=== PATIENT | female | born 1955 ===

== ENCOUNTER 2018-03-07 12:25 | Emergency (ER) | payer SELFPAY ==
--- NOTE | 2018-03-07 12:40 | ER Report ---
History and Physical Time Seen By MD: 12:40 Hx. of Stated Complaint: pt presents with hx of arriving in [place] from [facility] on , where she started having problems with her asthma, arrived in [place] yesterday and breaqthing is more difficult, and has a worsening cough. Stated prednisolone on Thursday HPI/ROS CHIEF COMPLAINT: SOB HISTORY OF PRESENT ILLNESS: Patient is a 8-year-old female who arrived from [facility] to [place] this past . Since arriving she's had increased work of breathing and shortness of breath and triggering of her asthma. He is using Ventolin inhaler and started prednisone she also started taking Augmentin. REVIEW OF SYSTEMS: Constitutional: No fever, no chills. Eyes: No discharge. ENT: No sore throat. Cardiovascular: No chest pain, no palpitations. Respiratory: Cough productive of green sputum, shortness of breath, wheezing Gastrointestinal: No abdominal pain, no vomiting. Genitourinary: No hematuria. Musculoskeletal: No back pain. Skin: No rashes. Neurological: No headache. Allergies: Coded Allergies: Sulfa (Sulfonamide Antibiotics) (Verified Allergy, Unknown, 03/07/18) Home Meds Active Scripts Chlorpheniramine Maleate (CHLORPHENIRAMINE MALEATE) 4 Mg Tablet, 4 MG PO Q6H for congestion, #28 TAB 0 Refills Prov:ISI MAHAJAN MD 03/07/18 Azithromycin 250 Mg Tab (AZITHROMYCIN 250 MG TAB) 250 Mg Tablet, 0 PO QDAY, #6 TAB 2 tablets on day one; the one tablet daily for four more days Prov:ISI MAHAJAN MD 03/07/18 Amlodipine Besylate (AMLODIPINE BESYLATE) 10 Mg Tablet, 1 TAB PO QDAY, #14 TAB 0 Refills Prov:ISI MAHAJAN MD 03/07/18 Reported Medications [zanidip] No Conflict Check, 10 MG 03/07/18 Albuterol Sulfate (VENTOLIN HFA) 18 Gm Inh, 1-2 PUFF INH 3-4XD, INH 03/07/18 [tritace] No Conflict Check, 10 03/07/18 [solone ] No Conflict Check, 25 MG ASDIRECTED 03/07/18 [ostelin] No Conflict Check 03/07/18 Mometasone Furoate (NASONEX) 17 Gm [place], 17 GM ANN, SPRAY 03/07/18 Montelukast Sodium (SINGULAIR) 10 Mg Tablet, 1 TAB PO QDAY, TAB 03/07/18 Melatonin (Melatonin) 5 Mg Tab.ir.er 03/07/18 Levothyroxine Sodium (LEVOTHYROXINE SODIUM) 75 Mcg Tablet, 75 MCG PO QDAY, TAB 03/07/18 [diabex XR] No Conflict Check 03/07/18 Amoxicillin/Pot Clav 875-125 Mg Tab (AUGMENTIN 875-125 TABLET) 1 Each Tablet, 1 TAB PO Q12H, TAB 03/07/18 Ciclesonide (ALVESCO) 6.1 Gm Hfa.aer.ad, 80 MCG IH BID 03/07/18 Past Medical/Surgical History Reactive airways disease, diabetes, hypertension Constitutional Vital Sign - Last 24 Hours 03/07/18 03/07/18 03/07/18 03/07/18 12:31 12:58 12:58 13:01 Temp 99.1 Pulse 95 80 81 Resp 20 18 B/P (MAP) 171/91 143/85 (104) Pulse Ox 93 92 99 O2 Delivery Room Air Room Air 03/07/18 03/07/18 03/07/18 03/07/18 13:03 13:30 14:00 14:00 Pulse 84 96 79 Resp 18 18 B/P (MAP) 138/77 (97) Pulse Ox 96 O2 Delivery Room Air 03/07/18 03/07/18 03/07/18 14:05 14:19 14:26 Pulse 87 86 89 Resp 18 B/P (MAP) 139/85 (103) 139/88 (105) Pulse Ox 95 Physical Exam General Appearance: The patient is alert, has no immediate need for airway protection and no signs of toxicity. Eyes: Pupils equal and round no pallor or injection. ENT, Mouth: Mucous membranes are moist. Respiratory: Patient with audible wheeze on exam some accessory muscle use Cardiovascular: Regular rate and rhythm. Gastrointestinal: Abdomen is soft and non tender, no masses, bowel sounds normal. Neurological: Awake and alert Skin: Warm and dry, no rashes. Musculoskeletal: Neck is supple non tender. Extremities are nontender, nonswollen and have full range of motion. Medical Decision Making EKG/Imaging Imaging FACILITY: [facility] [place] PATIENT NAME: Sheila Marshall : 1955 MR: [id number] V: [id number] EXAM DATE: ORDERING PHYSICIAN: ISI MAHAJAN TECHNOLOGIST: Location: [facility] Patient: Sheila Marshall : 1955 Visit/Account:[id number] Date of Sevice: 03/07/2018 CHEST PA AND LAT INDICATION: Cough COMPARISON: None available FINDINGS: Heart size within normal limits. There is no focal infiltrate or lobar consolidation. There is no pneumothorax or pleural effusion. Degenerative changes are noted in the thoracic spine. IMPRESSION: 1. No acute cardiopulmonary process. Report Dictated By: Marshall Sutton at 03/07/2018 1:56 PM Report E-Signed By: Marshall Sutton at 03/07/2018 1:57 PM WSN:[email or web address] ED Course/Re-evaluation ED Course Patient improving with DuoNeb treatments. Plan will be discharged home with instructions to continue prednisone as directed also start azithromycin to treat for atypical pneumonia. Also will prescribe amlodipine for patient for antihypertensive Decision to Disposition Date: Mar 07, 2018 Decision to Disposition Time: 14:59 Depart Departure Latest Vital Signs Vital Signs Date Time Temp Pulse Resp B/P (MAP) Pulse Ox O2 Delivery O2 Flow Rate FiO2 03/07/18 14:26 89 139/88 (105) 03/07/18 14:19 95 03/07/18 14:05 18 03/07/18 14:00 Room Air 03/07/18 12:31 99.1 Impression: Primary Impression: Asthma exacerbation Condition: Improved Disposition: HOME OR SELF-CARE New Scripts Chlorpheniramine Maleate (CHLORPHENIRAMINE MALEATE) 4 Mg Tablet 4 MG PO Q6H for congestion, #28 TAB 0 Refills Prov: ISI MAHAJAN MD 03/07/18 Azithromycin 250 Mg Tab (AZITHROMYCIN 250 MG TAB) 250 Mg Tablet 0 PO QDAY, #6 TAB 2 tablets on day one; the one tablet daily for four more days Prov: IIS MAHAJAN MD 03/07/18 Amlodipine Besylate (AMLODIPINE BESYLATE) 10 Mg Tablet 1 TAB PO QDAY, #14 TAB 0 Refills Prov: ISI MAHAJAN MD 03/07/18 Patient Instructions: Asthma (ED) Additional Instructions: Take all your medications as directed Use your Ventolin inhaler, 2 puffs every 6 hours for the next 72 hours then 1-2 puffs every 4-6 hours as needed for shortness of breath or cough Problem Qualifiers Primary Impression: Asthma exacerbation Asthma severity: moderate Asthma persistence: persistent Qualified Codes: J45.41 - Moderate persistent asthma with (acute) exacerbation ISI MAHAJAN MD Mar 07, 2018 12:40
[2018-03-07] MEDS ORDERED: ALBUTEROL/IPRATROPIUM 3 ML NEB NEB ONE ×2 (12:55→14:00)
[2018-03-07] MEDS ORDERED: ALB18R INH (13:19)
[2018-03-07] MEDS ORDERED: [UNRECOGNIZED DRUG - OTHER] (13:19)
[2018-03-07] MEDS ORDERED: LEVO75TA73 PO (13:19)
[2018-03-07] MEDS ORDERED: [UNRECOGNIZED DRUG - OTHER] (13:19)
[2018-03-07] MEDS ORDERED: AMOX-559 PO (13:19)
[2018-03-07] MEDS ORDERED: [UNRECOGNIZED DRUG - OTHER] ASDIRECTED (13:19)
[2018-03-07] MEDS ORDERED: [UNRECOGNIZED DRUG - CODE] IH (13:19)
[2018-03-07] MEDS ORDERED: MONT10TA PO (13:19)
[2018-03-07] MEDS ORDERED: MOMR ENA (13:19)
[2018-03-07] MEDS ORDERED: MELA5TAB21 (13:19)
[2018-03-07] MEDS ORDERED: [UNRECOGNIZED DRUG - OTHER] (13:19)
[2018-03-07] MEDS ORDERED: [UNRECOGNIZED DRUG - OTHER] (13:19)
--- NOTE | 2018-03-07 14:00 | RADIOLOGY IMAGING REPORT ---
FACILITY: [facility] PATIENT NAME: Sheila Marshall : 1955 MR: [id number] V: [id number] EXAM DATE: ORDERING PHYSICIAN: ISI MAHAJAN TECHNOLOGIST: Location: [facility] [place] Patient: Sheila Marshall : 1955 Visit/Account:[id number] Date of Sevice: 03/07/2018 CHEST PA AND LAT INDICATION: Cough COMPARISON: None available FINDINGS: Heart size within normal limits. There is no focal infiltrate or lobar consolidation. There is no pneumothorax or pleural effusion. Degenerative changes are noted in the thoracic spine. IMPRESSION: 1. No acute cardiopulmonary process. Report Dictated By: Marshall Sutton at 03/07/2018 1:56 PM Report E-Signed By: Marshall Sutton at 03/07/2018 1:57 PM WSN:[email or web address]
[2018-03-07] MEDS ORDERED: AMLO-99 PO (14:10)
[2018-03-07] MEDS ORDERED: AZIT-18 PO (14:10)
[2018-03-07] MEDS ORDERED: CHLO-172 PO (14:13)
[2018-03-07 14:26] VITALS: BP 139/88
--- NOTE | 2018-03-07 14:53 | EKG ---
FACILITY: [facility] [place] PATIENT NAME: WANDER BACA : [id number] MR: [id number] V: [id number] EXAM DATE: ORDERING PHYSICIAN: ISI MAHAJAN TECHNOLOGIST: TEOFILO Villanueva Reason : Blood Pressure : / mmHG Vent. Rate : 088 BPM Atrial Rate : 088 BPM P-R Int : 156 ms QRS Dur : 088 ms QT Int : 370 ms P-R-T Axes : 048 002 072 degrees QTc Int : 447 ms Normal sinus rhythm Normal ECG No previous ECGs available Confirmed by MICHELLE VALDOVINOS ([id number]) on 03/07/2018 10:21:17 PM Referred By: KEYSHAWN Confirmed By:MICHELLE VALDOVINOS
== END 2018-03-07 14:25 | disposition home or self-care (01) ==
LOC: ER 12:36
DX: J45.41 Moderate persistent asthma with (acute) exacerbation (principal)
CPT/HCPCS: 71046; 93005; 94640; 99284; J7620